=== PATIENT | male | born 1965 | race Caucasian/White ===

== ENCOUNTER → 2017-01-16 | Day surgery (SDC) | payer OTHER ==
[~2017-01-16] MED LIST: BENZONATATE PO; CHOLESTEROL MED; COZAAR; HYDROCHLOROTHIA25 MG PO; NO MEDICATIONS
--- NOTE | ~2017-01-16 | OR ---
Unit #: [id number] #: [id number] Patient: MILADYS RYDER [id number] [address] [place], [place] [address] [id number] O MR#: [id number] NAME: MILADYS RYDER. ROOM: Date of Procedure: 01/16/2017 Admission Date: 01/16/2017 Surgeon: Timo Baker M.D. : 1965 Attending Physician: Timo Baker M.D. Primary Care Physician: Jose Martin M.D. OPERATIVE REPORT PRIMARY CARE PHYSICIAN Jose Martin M.D. PREOPERATIVE DIAGNOSIS Colorectal cancer screening in an average-risk patient. PROCEDURES PERFORMED Colonoscopy and polypectomy. POSTOPERATIVE DIAGNOSES 1. Single sessile polyp in the mid sigmoid colon. This was about 6 to 7 mm in size and was removed using snare polypectomy. 2. Rest of the examination up to cecum and terminal ileum was normal. The quality of the prep was excellent. The patient did not have any diverticulosis nor any hemorrhoids. RECOMMENDATIONS Follow up results of polyp histology and consider repeat colonoscopy in 5 years. SEDATION USED MAC. DESCRIPTION OF PROCEDURE Following detailed explanation of the potential risks and complications of a colonoscopy, namely perforation, bleeding, and complications related to sedation, the patient was brought to GI lab and laid in the left lateral decubitus position. A digital rectal examination was performed, which was normal. Lubricated tip of the Olympus video colonoscope was inserted through the anus and advanced under direct vision. The scope was advanced and passed up to sigmoid into descending colon. No diverticula were noted in this area. The scope tip was then navigated all the way up to cecum with visualization of the ileocecal valve and the appendiceal orifice. Preparation was excellent with good visualization and photodocumentation was obtained. Last several inches of the terminal ileum also visualized after intubation of the ileocecal valve and appeared normal. Successive segments of the colonic mucosa were examined upon withdrawal. A single sessile polyp was noted in the mid sigmoid colon. The latter was removed using snare polypectomy. The polyp was about 6 to 7 mm in size. It was removed, retrieved, and sent for histology. No additional polyps noted. The patient did not have any diverticula, diverticulosis, nor any hemorrhoids. The scope was then withdrawn. The patient returned to the Unit #: [id number] #: [id number] Patient: MILADYS RYDER [facility]. He tolerated the procedure without any postprocedure complications. Dictated by.Ángel Ribera/wendy TD: 01/17/2017 01:52 JOB #: [id number] CC: Jose Martin M.D. OPERATIVE REPORT Page 1 of 1 X Timo Baker MD X PROCEDURE OPERATIVE NOTE
== END | disposition home or self-care (01) ==
LOC: COPS 01-02 08:30
DX: Z12.11 Encounter for screening for malignant neoplasm of colon (principal); D12.5 Benign neoplasm of sigmoid colon; I10 Essential (primary) hypertension; Z88.6 Allergy status to analgesic agent
CPT/HCPCS: 88305; J2250